=== PATIENT | female | born 1980 | race Caucasian/White ===

== ENCOUNTER → 2025-03-05 17:38 | Outpatient (REF) | payer OTHER, SELFPAY | LOC: MRI 3T 17:38 | PROVIDERS: ATTENDING PHYSICIAN Internal Medicine | DX: M25.361 Other instability, right knee (principal); M25.561 Pain in right knee | CPT/HCPCS: 73721 ==

== ENCOUNTER 2025-04-02 06:07 | Day surgery (SDC) | payer OTHER, SELFPAY ==
[2025-04-02] VITALS (9 sets, daily range): BP systolic 109–149; BP diastolic 68–100; BMI 49.0
[2025-04-02] MEDS: CELEBREX 200 MG PO (10:31)
[2025-04-02] MEDS: TYLENOL 1000 MG PO (10:31)
[2025-04-02] MEDS: NORMOSOL-R/PLASMALYTE-A 1000 IV (10:43)
[2025-04-02] MEDS: SUBLIMAZE 25 MCG IV ×2 (13:08→13:22)
[2025-04-02] MEDS: ROXICODONE 5 MG PO (14:17)
== END 2025-04-02 14:50 | disposition home or self-care (01) ==
LOC: SDS 06:07
PROVIDERS: ATTENDING PHYSICIAN Specialist
DX: S83.231A Complex tear of medial meniscus, current injury, right knee, initial encounter (principal); S83.281A Other tear of lateral meniscus, current injury, right knee, initial encounter; S83.261A Peripheral tear of lateral meniscus, current injury, right knee, initial encounter; X58.XXXA Exposure to other specified factors, initial encounter; M94.261 Chondromalacia, right knee
CPT/HCPCS: 29880

== ENCOUNTER → 2025-06-25 12:56 | Outpatient (REF) | payer OTHER, SELFPAY | LOC: RAD 12:56 | PROVIDERS: ATTENDING PHYSICIAN Internal Medicine | DX: Z86.718 Personal history of other venous thrombosis and embolism (principal); M79.661 Pain in right lower leg | CPT/HCPCS: 93971 ==